=== PATIENT | male | born 1980 | race Hispanic/Latino ===

== ENCOUNTER 2023-04-22 14:19 | Emergency (ER) | payer OTHER ==
[~2023-04-22] VITALS: Ht 170.2 cm; Wt 86.2 kg
[2023-04-22 15:04] LABS: CLARITY,URINE CLEAR (CLEAR); COLOR,URINE YELLOW (YELLOW); KETONES,URINE TRACE (NEGATIVE); LEUKOCYTE ESTERASE ,URINE NEGATIVE (NEGATIVE); NITRITE,URINE NEGATIVE (NEGATIVE); PROTEIN,URINE DIPSTICK NEGATIVE (NEGATIVE); URINE UROBILINOGEN 0.2 mg/dL (0.2 - 1)
[2023-04-22 15:07] LABS: BACTERIA,URINE FEW /HPF; EPITHELIAL CELLS,URINE FEW /LPF; WBC,URINE (MAN) 0-5 /HPF (0-5)
[2023-04-22 16:34] VITALS: O2SAT 100
== END 2023-04-22 17:04 | disposition home or self-care (01) ==
LOC: ER 14:24
DX: R36.1 Hematospermia (principal); S39.94XA Unspecified injury of external genitals, initial encounter; N43.3 Hydrocele, unspecified; I86.1 Scrotal varices; E11.9 Type 2 diabetes mellitus without complications; W50.0XXA Accidental hit or strike by another person, initial encounter; Y93.83 Activity, rough housing and horseplay; Y92.009 Unspecified place in unspecified non-institutional (private) residence as the place of occurrence of the external cause
CPT/HCPCS: 76870; 81001; 93976; 99284

== ENCOUNTER → 2024-12-18 | Outpatient (REF) | payer OTHER | LOC: US 09:00 | PROVIDERS: ATTEND Family Medicine | DX: N50.811 Right testicular pain (principal); N43.3 Hydrocele, unspecified; N43.40 Spermatocele of epididymis, unspecified | CPT/HCPCS: 76870; 93976 ==